=== PATIENT | male | born 1945 | race Caucasian/White ===

== ENCOUNTER 2016-07-19 11:21 | Observation (INO) | payer MEDICARE, OTHER ==
[~2016-07-19] VITALS: Ht 175.3 cm; Wt 93.6 kg
[2016-07-19 11:54] LABS: BASOPHILS 0.5 % (0.0-2.0); EOSINOPHILS 2.1 % (0-7); HEMATOCRIT 47.3 % (42.0-54.0); HEMOGLOBIN 16.3 g/dL (13.5-17.5); IMMATURE GRANULOCYTES 0.2 % (0-5); LYMPHOCYTES 32.7 % (15-50); MCHC 34.5 g/dL (31.0-37.0); MCV 98.5 fL (80.0-100.0); MONOCYTES 11.7 % (2-11); NEUTROPHILS 52.8 % (40-80); PLATELET COUNT 177 10x3/uL (130-400); RDW 15.7 % (11.5-14.5); WBC 6.2 10x3/uL (4.8-10.8)
[2016-07-19 12:11] LABS: ALBUMIN 3.9 g/dL (3.4-5.0); BILIRUBIN - TOTAL 0.55 mg/dL (0.2-1.3); CALCIUM 9.3 mg/dL (8.5-10.1); CARBON DIOXIDE 25.4 mmol/L (21.0-32.0); CREATININE - SERUM 1.1 mg/dL (0.6-1.3); POTASSIUM - SERUM 4.4 mmol/L (3.5-5.1)
[2016-07-19 12:28] LABS: TROPONIN-I 0.111 ng/mL (0.000-0.060)
[2016-07-19 15:27] VITALS: BP 126/72
--- NOTE | 2016-07-19 15:35 | NUR ---
PT ARRIVED TO ROOM. RR NONLABORED ON RA. VSS. PT HAS CARDIZEM DRIP INFUSING @10ML/HR VIA R.FA PIV WITH DRSG CDI AND SWAB CAPS IN USE. ADMISSION ASSESSMENT COMPLETED AND ORDERS BEING REC'D. PT RESTING COMFORTABLY AND DENIES PAIN OR CURRENT NEEDS. ORIENTED PT TO FLOOR AND ROOM. FAMILY AT BEDSIDE, TELEMETRY APPLIED. NO FURTHER NEEDS, WILL CPOC.
[2016-07-19] MEDS ORDERED: BENAZEPRIL HCL10 MG PO (15:36)
[2016-07-19] MEDS ORDERED: PROSCAR5 MG PO (15:37)
[2016-07-19] MEDS ORDERED: NORVASC10 MG PO (15:37)
[2016-07-19] MEDS ORDERED: VITAMIN D31000 UNIT PO (15:37)
[2016-07-19] MEDS ORDERED: HYDROCODONE-APA1 TAB PO (15:39)
[2016-07-19] MEDS ORDERED: ALEVE220 MG PO (15:39)
[2016-07-19] MEDS ORDERED: LIPITOR20 MG PO (15:40)
[2016-07-19] MEDS ORDERED: KLONOPIN1 MG PO (15:40)
[2016-07-19] MEDS ORDERED: ZANTAC150 MG PO (15:41)
[2016-07-19] MEDS ORDERED: CYCLOBENZAPRINE5 MG PO (15:42)
[2016-07-19] MEDS ORDERED: COUMADIN7.5 MG PO (15:42)
[2016-07-19] MEDS ORDERED: COUMADIN4 MG PO (15:46)
[2016-07-19 15:48] VITALS: BP 129/72; Ht 175.3 cm; Wt 93.6 kg
--- NOTE | 2016-07-19 17:35 | NUR ---
PT RESTING QUIETLY IN BED WATCHING TV. RR NONLABORED ON RA. PT DENIES ANY PAIN OR CURRENT NEEDS. CL IN REACH. WILL CPOC.
[2016-07-19 19:00] VITALS: BP 111/63
[2016-07-20] VITALS: BP 114/69
[2016-07-20 04:00] VITALS: BP 113/69
[2016-07-20 08:00] VITALS: BP 120/79
--- NOTE | 2016-07-20 09:50 | NUR ---
Pt in low fowlers position, Saline lock DCd from right AC with cath tip intact. laboratory monitor removed at this time, patient rates pain as 4-5/10 but denies need for intervention. Patient denies further needs at this time. Debra RN in room.
--- NOTE | 2016-07-20 11:19 | NUR ---
ECHO COMPLETED AT BS.
[2016-07-20 11:50] VITALS: BP 123/72
[2016-07-20] MEDS ORDERED: CARDIZEM CD240 MG PO (11:55)
--- NOTE | 2016-07-20 12:45 | NUR ---
IV AND TELEMETRY DCD. DC PLANS GIVEN. UNDERSTANDING VOICED. ESCORTED TO CAR BY W/C.
--- NOTE | 2016-07-22 11:12 | EC ---
PATIENT:CHRISSY MAHMOOD DATE OF SERVICE: 07/19/16 SEX: M MEDICAL RECORD: [id number] DATE OF : [birth year] LOCATION:D.M2 D.211 AGE OF PATIENT: 71 ADMISSION DATE: 07/19/16 REFERRING PHYSICIAN: INTERPRETING PHYSICIAN: MANNY LANGSTON MD ECHOCARDIOGRAM REPORT ECHO CHARGES 4 ECHO COMPLETE CLINICAL DIAGNOSIS: A-FIB ECHOCARDIOGRAPHIC MEASUREMENTS (adult normal given) AC root (d.<3.7cm) 3.7 LV Septum d (<1.2 cm> 2.0 Valve Excursion 2.2 LV Septum (systole) 2.6 Left Atria (s.<4.0cm> 4.0 LVPW d(<1.2cm) 1.3 RV (d.<2.3cm) 2.7 LVPW (sytole) 2.2 LV diastole(<5.6CM) 5.6 MV E-F(>70mm/sec) LV systole 2.9 LVOT Diameter 1.7 MV exc.(>10mm) Est.ejection fraction (50-75%) Pericardial Effusion N DOPPLER: LVIT A 98.0 E 109 LA RVSP 29.0 LVOT 158 AOP1/2T Asc. Ao 269 RVOT 103 RA PA 134 AV Gradient Peak 29.0 AV Mean 14.3 AV Area 1.4 MV Gradient Peak 5.0 MV Mean 1.9 MV Area COMMENTS: Straw Hat Brim Cutter Operator: Zackery ROBERTS Manager Financial Systems:Niels Naik TAPE# PACS DATE OF SERVICE: 07/20/2016 Echocardiogram FINDINGS: 1. Left ventricular chamber size is within normal limits. Left ventricular systolic function is normal. Overall ejection fraction estimated at 60%. 2. Left atrium, right atrium, and right ventricular chamber sizes are upper limits of normal to mildly dilated. Left atrium measures 4.0 cm. 3. Valvular structures: Aortic valve demonstrates mild aortic stenosis. Valve ECHOCARDIOGRAM REPORT [id number] CHRISSY MAHMOOD area calculates to 1.4 cm-squared and there is a gradient of 29 mm across the valve. The remaining valvular structures have normal structure and motion. 4. Doppler interrogation elsewise reveals no significant valvular insufficiency or stenosis and pulmonary systolic pressure is normal estimated at 29 mmHg. 5. No evidence of pericardial effusion or left ventricular thrombus. TRANSINT:[id number] Voice Confirmation ID: [id number] DOCUMENT ID: [id number] MANNY LANGSTON MD at 1112 CC: [id number] DICTATION DATE: 07/21/16 1224 ADVERTISING ASSOCIATE: 07/21/162042 DIS IN 07/20/16 [facility] [address] [place] [address]
--- NOTE | 2016-07-22 13:36 | HP ---
PATIENT: CHRISSY MAHMOOD MEDICAL RECORD: [id number] ACCOUNT: [id number] LOCATION:[address] : [birth year] ADMISSION DATE: 07/19/16 HISTORY AND PHYSICAL EXAMINATION HISTORY OF PRESENT ILLNESS: A 71-year-old male with a history of atrial fibrillation status post ablation back in 2014, was actually at Dr. Wray's office for injections, found to be in atrial fibrillation with RVR, in entirely symptomatic. He did have ablation as described above. He has a history of dyslipidemia. We are asked to see his concerning his cardiovascular status. PAST MEDICAL HISTORY: Includes: 1. History of hypertension. 2. tube buffer use of ____ medications. 3. Dyslipidemia. 4. Atrial fibrillation. 5. Osteoarthritis. 6. Gastroesophageal reflux disease. ALLERGIES: INCLUDE SULFA, PENICILLIN, TETRACYCLINE, ERYTHROMYCIN AND CIPRO. MEDICATIONS: Proscar 5 mg p.o. q. day, Zantac 150 b.i.d., Naprosyn 220 b.i.d., [place] 10/325 one b.i.d., benazepril 10 q. day, ____ 20 q. day, amlodipine 10 q. day, Coumadin per scale, Flexeril 5 q.h.s. SOCIAL HISTORY: , lives here in [place], a nonsmoker and nondrinker. He takes care of all ADLs. REVIEW OF SYSTEMS: The patient reports easy bruising but reports no swollen glands. The patient reports no fever, no night sweats, no significant weight gain, no significant weight loss. No significant exercise tolerance. The patient reports no dry eyes, no irritation, no vision change. Patient reports no difficulty hearing and no ear pain. The patient reports no frequent nose bleeds or nose and sinus problems. The patient reports on arm pain on exertion. No shortness of breath while lying down. No history of heart murmur. Patient reports no cough, no wheezing or coughing up blood. Patient reports no abdominal pain, no vomiting. Normal appetite. No diarrhea and not vomiting blood. No nausea and no constipation. Patient reports no incontinence. No difficulty urinating. No hematuria. No increased frequency. Patient reports no muscle aches. No weakness, no arthralgias, no back pain. No swelling of the extremities. Patient reports no abnormal mole, no jaundice, no rashes. Reports no loss of consciousness. No weakness and no numbness. No seizures, dizziness, or headaches. The patient reports no depression, no sleep disturbance, feeling safe in a relationship and no alcohol abuse. Patient reports on fatigue. Reports no runny nose or sinus pressure. No itching, no hives, and no frequent sneezing. PHYSICAL EXAMINATION: GENERAL: Pleasant gentleman, who appears stated age, in no acute distress. VITAL SIGNS: Pulse rate currently 72, blood pressure 129/72. HEENT: Normocephalic, atraumatic. NECK: No JVD. HEART: Regular. LUNGS: Clear. ABDOMEN: Soft, nontender. HISTORY AND PHYSICAL [id number] TIMOTEOCHRISSY Serge EXTREMITIES: Pulse 2+ and equal. No edema. DIAGNOSTIC DATA: ECG shows atrial fibrillation with RVR. IMPRESSION: Atrial fibrillation with rapid ventricular response, has a mildly elevated initial cardiac enzymes. We will follow this serially. Suspect demand ischemia, respond nicely to IV Cardizem. We will attempt to switch his amlodipine to Cardizem p.o. Further recommendations based on above findings. TRANSINT:[id number] Voice Confirmation ID: [id number] DOCUMENT ID: [id number] RICHARDSON ARTEAGA MD at 1336 CC: [id number] DICTATION DATE: 07/19/16 164 PLASTIC PARTS DESIGNER: 07/19/16 1846 DIS IN 07/20/[address] [facility] [address] [place] [address]
--- NOTE | 2016-07-22 13:36 | DS ---
PATIENT:CHRISSY MAHMOOD :49 MEDICAL RECORD: [id number] DISCHARGE SUMMARY ADMISSION DATE: 07/19/16 DISCHARGE DATE: 07/20/16 DATE OF ADMISSION: 07/19/2016 DATE OF DISCHARGE: 07/20/2016 IMPRESSION: 1. Atrial fibrillation. 2. History of hypertension. BRIEF HISTORY AND HOSPITAL COURSE: A 71-year-old male admitted with AFib, RVR, has a history of AFib, status post-ablation. He received IV Cardizem and responded nicely with protestant to normal sinus rhythm, already on Coumadin for CVA prophylaxis. We will switch his amlodipine to Cardizem 240 daily[address] He will see Dr[address] Castellano at his convenience for followup. TRANSINT:[id number] Voice Confirmation ID: [id number] DOCUMENT ID: [id number] RICHARDSON ARTEAGA MD at 1336 CC: [id number] DICTATION DATE: 07/20/16 0832 RUBBER FLAP TUBER MACHINE OPERATOR: 07/20/16 1945 DIS IN 07/20/16 [place] [place] [address] [place] [address]
== END 2016-07-20 12:46 | disposition home or self-care (01) ==
LOC: D.ER 11:21 → D.M2 14:38 → OBSVTIME 14:38 → D.M2 15:04 → D.SDCHOLD 15:04 → D.M2 07-20 12:46
PROVIDERS: Emergency Medicine; ADMIT Internal Medicine Interventional Cardiology
DX: I48.91 Unspecified atrial fibrillation (principal); I10 Essential (primary) hypertension; E78.5 Hyperlipidemia, unspecified; M19.90 Unspecified osteoarthritis, unspecified site; K21.9 Gastro-esophageal reflux disease without esophagitis

== ENCOUNTER → 2018-05-30 16:44 | Outpatient (CLI) | payer MEDICARE, OTHER ==
[2016-07-19 15:48] VITALS: BMI 30.5
[~2018-05-30 16:44] MED LIST: ALEVE220 MG PO; BENAZEPRIL HCL10 MG PO; CARDIZEM CD240 MG PO; COUMADIN4 MG PO; COUMADIN7.5 MG PO; CYCLOBENZAPRINE5 MG PO; HYDROCODONE-APA1 TAB PO; KLONOPIN1 MG PO; LIPITOR20 MG PO; NORVASC10 MG PO; PROSCAR5 MG PO; VITAMIN D31000 UNIT PO; ZANTAC150 MG PO
== END | disposition home or self-care (01) ==
LOC: D.LABREF 16:44
DX: J32.9 Chronic sinusitis, unspecified (principal)

== ENCOUNTER 2018-10-22 08:44 | Day surgery (SDC) | payer MEDICARE, OTHER ==
[~2018-10-22] VITALS: Ht 175.3 cm; Wt 90.7 kg
--- NOTE | ~2018-10-22 | HP ---
PATIENT: CHRISSY SELLERS MEDICAL RECORD: [id number] ACCOUNT: [id number] LOCATION:[place] : [birth year] ADMISSION DATE: 10/22/18 PCP: FRANKY HULL MD HISTORY AND PHYSICAL EXAMINATION HISTORY: Mr. Sellers is 73 years old. He has had severe left-sided sinusitis secondary to a dental abscess. The tooth was taken out and the fistula was closed, but he has continued to have sinusitis, refractory to medical management. He is being admitted for left-sided sinus surgery. PAST MEDICAL HISTORY: Includes hypertension and reflux. PAST SURGICAL HISTORY: Includes carpal tunnel surgery, back surgery, rotator cuff surgery, neck surgery, and arthroscopic knee surgery. CURRENT MEDICATIONS: Include diltiazem, benazepril, finasteride, hydrocodone, Zantac, atorvastatin, clonazepam, Coumadin, cyclobenzaprine, Combivent, testosterone, and gabapentin. ALLERGIES: PENICILLIN, TETRACYCLINE, CIPRO, SEPTRA, AND THYROID MEDICATION. PHYSICAL EXAMINATION: GENERAL: He is healthy appearing. FACE: Normal and symmetric. EYES: Sclerae and conjunctivae are normal. EARS: TMs are intact. No middle ear effusion. NOSE: Normal anterior rhinoscopy. ORAL CAVITY AND OROPHARYNX: Tongue protrudes in midline. Base of tongue is normal. Palate is normal. On nasal endoscopy, right side looks good. On left side, he has edema and swelling. Left middle meatus is closed. There is some purulent drainage and granulation changes in the middle meatus on the middle turbinate. NECK: No masses. No adenopathy. CHEST: Clear. CARDIOVASCULAR: Regular rate and rhythm. No murmur. IMPRESSION: Left-sided ethmoid, maxillary, and frontal sinusitis secondary to initially a dental abscess. PLAN: Left maxillary antrostomy, left ethmoidectomy, and left frontal sinusotomy. TRANSINT:[id number] Voice Confirmation ID: [id number] DOCUMENT ID: [id number] FRANKY HULL MD CC: [id number] DICTATION DATE: 10/18/18 1510 JEWISH THOUGHT PROFESSOR: 10/18/18 1532 [facility] [address] [place] [address]
--- NOTE | ~2018-10-22 | OP ---
PATIENT NAME: CHRISSY MAHMOOD MEDICAL RECORD: [id number] :49 LOCATION:[facility] ADMISSION DATE: SURGEON: BRIAN SLOAN MD DATE OF OPERATION: 10/22/2018 PREOPERATIVE DIAGNOSIS: Left-sided chronic sinusitis. POSTOPERATIVE DIAGNOSIS: Left-sided chronic sinusitis. PROCEDURES: Left-sided ethmoidectomy, left frontal sinusotomy, left middle meatal antrostomy. SURGEON: Brian Sloan MD ANESTHESIA: General orotracheal. BLOOD LOSS: Less than 5 cc. SPECIMENS: Cultures from the left frontal sinus and left maxillary sinus. COMPLICATIONS: None. NASAL PACKING: None. DISPOSITION: Recovery stable. FINDINGS: There was purulence draining from the frontal sinus, purulence draining from the ethmoids and from the left maxillary sinus. The sphenoid sinus on the left side was clear with nice patent ostia. No sign of infection. The right side of the nose was normal. DESCRIPTION OF PROCEDURE: He was brought to the operating room and placed in supine position, sedated and intubated by anesthesia. The head was turned 90 degrees. A head drape was applied. Using a headlight and nasal speculum, the nose was examined. The right side first was unremarkable. On the left side, the inferior turbinate, tip of the middle turbinate, and lateral nasal wall, floor of the nose were injected with a total of less than 1 cc of 1% lidocaine with 1:100,000 epinephrine and 2 Afrin pledgets were placed in both sides of the nose. He was positioned, prepped and draped in usual fashion. Then, all the Afrin pledgets were removed both from each side. The 0-degree scope was used to examine the right side of the nose. The inferior middle turbinate, middle meatus was normal. Nasal vault and nasopharynx were all normal as was all the mucosa. The left side was examined, the inferior meatus was normal. Inferior turbinate was normal. The middle meatus purulence bulging maxillary wall present in the middle turbinate against the septum. Purulence was drained in and out of the anterior, superior, middle meatus, nasal frontal sinus as well. I was able to, with the scope and suction, get past the middle turbinate all the way back to the back of the nose, the nasopharynx was normal. I could see the sphenoid ostia, which was opened clean and the sinus was obviously aerated. Then, backing up the middle turbinate medialized again. Using the microdebrider, some of this tissue, base of the uncinate that had been pressed medially was taken down. Then, copious purulence was draining from the maxillary sinus. Cultures were taken of that. The anterior ethmoids were taken down. This exposed the frontal sinus duct. Copious purulence was pouring from there as well. Cultures were obtained. A curved large olive tip suction was OPERATIVE REPORT [id number] CHRISSY MAHMOOD placed to the left maxillary sinus. A Luki trap was used to suction out some of that material and then with better visualization, the posterior ethmoids were taken down as well carefully with the microdebrider. This created a nice open middle meatus. A thin curved olive tip suction was inserted into the frontal sinus duct all the way up into the frontal sinus. This was irrigated repeatedly with saline and obvious purulence could be seen coming back and then was suctioned over and over with a 20 cc syringe. Then, the same with the left maxillary sinus, repeatedly irrigating with a 20 cc syringe until it was completely clean. There were granular changes around the maxillary ostia, but that was all cleaned up to a nice opening there. The nasopharynx was suctioned. Some Afrin pledgets were placed in there again for a few minutes and removed. There was really no significant oozing at all. He was awakened, extubated, and transported to recovery in good condition. No complications. TRANSINT:[id number] Voice Confirmation ID: [id number] DOCUMENT ID: [id number] BRIAN SLOAN MD CC: [id number] DICTATION DATE: 10/22/18 1229 CHIEF DATA OFFICER: 10/22/18 1323 [facility] [address] [place] [address]
[~2018-10-22 08:44] MED LIST changes: +METFORMIN HCL500 M1 PO; +NEURONTIN600 MG PO
[2018-10-22 09:22] LABS: HEMATOCRIT 38.2 % (42.0-54.0); HEMOGLOBIN 12.5 g/dL (13.5-17.5); MCHC 32.7 g/dL (31.0-37.0); MCV 100.8 fL (80.0-100.0); MEAN PLATELET VOLUME 9.8 fL (7.4-10.4); RBC 3.79 10x6/uL (4.20-6.10); RDW 14.1 % (11.5-14.5); WBC 5.2 10x3/uL (4.8-10.8)
[2018-10-22 09:40] LABS: CALC OSMOLALITY 283 mosm/kg (275-300); CALCIUM 9.5 mg/dL (8.5-10.1); CARBON DIOXIDE 28.4 mmol/L (21.0-32.0); CHLORIDE - SERUM 106 mmol/L (98-107); GLUCOSE 125 mg/dL (74-106); POTASSIUM - SERUM 4.1 mmol/L (3.5-5.1); SODIUM 141 mmol/L (136-145); UREA NITROGEN 17 mg/dL (7-18); eGFR NON AFRICAN AMERICAN 78 mL/min (90-120)
[2018-10-22 09:44] LABS: APTT 29.7 SECONDS (22.8-39.4); INR 1.04 (0.85-1.17); PROTIME 13.1 SECONDS (11.6-15.0)
[2018-10-22 10:20] VITALS: BP 130/73; Ht 175.3 cm; Wt 90.7 kg
--- NOTE | 2018-10-22 13:58 | NUR ---
IV ERMOVED AND PT VOIDED
[2018-10-28 15:06] LABS: AEROBE ID Final report (())
== END 2018-10-22 14:10 | disposition home or self-care (01) ==
LOC: D.OPS 08:44 → D.PAN 10:55 → D.OPS 10:55
PROVIDERS: Anesthesiology; ATTEND Otolaryngology
DX: J32.1 Chronic frontal sinusitis (principal); J32.2 Chronic ethmoidal sinusitis; J32.0 Chronic maxillary sinusitis; Z01.812 Encounter for preprocedural laboratory examination

== ENCOUNTER → 2020-01-29 21:48 | Outpatient (CLI) | payer MEDICARE, OTHER ==
[2018-10-22 10:20] VITALS: BMI 29.6
== END | disposition home or self-care (01) ==
LOC: D.LABREF 21:48
PROVIDERS: ATTEND Orthopaedic Surgery
DX: M19.011 Primary osteoarthritis, right shoulder (principal)

== ENCOUNTER 2020-01-31 12:43 | Inpatient (IN) | payer MEDICARE, OTHER ==
[~2020-01-31] VITALS: Ht 175.3 cm; Wt 90.9 kg
[~2020-01-31 12:43] MED LIST changes: -COUMADIN4 MG PO; -COUMADIN7.5 MG PO; +HYDROCODON-ACE1 EA10 PO; -HYDROCODONE-APA1 TAB PO; +VITAMIN D2000 UNI1 PO; -VITAMIN D31000 UNIT PO; +WARFARIN SODIU7.5 MG PO
[2020-03-06] MEDS ORDERED: PEPCID AC20 MG PO (12:04)
[2020-03-06] MEDS ORDERED: ALEVE220 MG PO (12:05)
[2020-03-06] MEDS ORDERED: COMBIVENT RESPIM4 GM INH (12:06)
[2020-03-06] MEDS ORDERED: RELPAX40 MG PO (12:06)
[2020-03-06] MEDS ORDERED: VITAMIN B12 IM (12:07)
[2020-03-06] MEDS ORDERED: PIOGLITAZONE15 MG PO (12:09)
[2020-03-06 13:32] LABS: BASOPHILS 0.3 % (0-2); HEMATOCRIT 42.5 % (42.0-54.0); HEMOGLOBIN 14.6 g/dL (13.5-17.5); LYMPHOCYTES 30.9 % (15-50); MCH 35.4 pg (26.0-34.0); MCHC 34.4 g/dL (31.0-37.0); MCV 103.2 fL (80.0-100.0); MONOCYTES 10.5 % (2-11); NEUTROPHILS 54.3 % (40-80); PLATELET COUNT 162 10x3/uL (130-400); RBC 4.12 10x6/uL (4.20-6.10); RDW 14.3 % (11.5-14.5)
[2020-03-06 13:41] LABS: ANION GAP 11.1 mmol/L (8-16); CALCIUM 9.4 mg/dL (8.5-10.1); CARBON DIOXIDE 28.1 mmol/L (21.0-32.0); CREATININE - SERUM 1.2 mg/dL (0.6-1.3); POTASSIUM - SERUM 4.2 mmol/L (3.5-5.1)
[2020-03-06 13:55] LABS: APTT 31.1 SECONDS (22.8-39.4); INR 1.31 (0.85-1.17); PROTIME 16.1 SECONDS (11.6-15.0)
[2020-03-06 13:57] LABS: BILIRUBIN NEGATIVE (NEGATIVE); KETONE NEGATIVE (NEGATIVE); NITRITE NEGATIVE (NEGATIVE)
[2020-03-09] VITALS (11 sets, daily range): BP systolic 92–137; BP diastolic 57–77; Ht 175.3 cm; Wt 90.9 kg
--- NOTE | 2020-03-09 07:17 | NUR ---
CAUTERY PAD PLACED ON LEFT THIGH. PLASMA BLADE USED ON SETTING 6/8. CAUTERY PAD LOT#[id number] EXP. 06/04/2021
--- NOTE | 2020-03-09 11:37 | NUR ---
RECEIVED TO ROOM 1209 VIA BED FROM PACU. A/O X3. BP IS LOW AT THIS TIME. WILL CONTINUE BOLUS AND MONITOR. DRESSING TO RIGHT SHOULDER DRY AND INTACT. DENIES NEEDS. REPORTS NO PAIN AT THIS TIME.
--- NOTE | 2020-03-09 12:24 | NUR ---
BP CONTINUES ON THE LOW SIDE BUT UP SLIGHTLY. LUNCH SERVED IN ROOM. AT BEDSIDE. DENIES NEEDS.
--- NOTE | 2020-03-09 16:15 | NUR ---
V OIDED 100 CC CLEAR YELLOW URINE WITHOUT DIFFICULTY. DENIES NEEDS. BP STEADY.
--- NOTE | 2020-03-09 18:29 | NUR ---
ATE OVER HALF OF SUPPER. DENIES NEEDS. VOIDED 100cc CLEAR YELLOW URINE. NO CHANGES NOTED.
--- NOTE | 2020-03-09 19:10 | NUR ---
PATIENT RESTING IN BED WITH NO S/S OF DISTRESS. EMPTIED 200ML FROM URINAL. PATIENT DENIES OTHER NEEDS AT THIS TIME. BED IN LOWEST POSITION AND CALL LIGHT WITHIN REACH. ENCOURAGED THE PATIENT TO CALL IF HE HAS NEEDS. WILL CONTINUE TO MONITOR.
--- NOTE | 2020-03-09 19:35 | NUR ---
ADMINISTERED MEDS PER ORDERS. PATIENT DENIES OTHER NEEDS. WILL CONTINUE TO MONITOR.
[2020-03-10 00:06] VITALS: BP 146/76
[2020-03-10 04:09] VITALS: BP 121/67
[2020-03-10 05:23] LABS: HEMATOCRIT 35.8 % (42.0-54.0); HEMOGLOBIN 11.5 g/dL (13.5-17.5); MCH 33.6 pg (26.0-34.0); MCHC 32.1 g/dL (31.0-37.0); MCV 104.7 fL (80.0-100.0); MEAN PLATELET VOLUME 10.8 fL (7.4-10.4); RBC 3.42 10x6/uL (4.20-6.10); RDW 14.3 % (11.5-14.5); WBC 6.6 10x3/uL (4.8-10.8)
[2020-03-10] MEDS ORDERED: PERCOCET 10-321 EAC1 PO (07:07)
--- NOTE | 2020-03-10 07:38 | NUR ---
ALERT AND ORIENTED. LUNGS CLEAR BILATERALLY. HEART SOUNDS S1 AND S2 HEARD IN ALL HOOD. BOWEL SOUNDS ACTIVE X 4. IV TO LEFT HAND PATENT WITHOUT REDNESS. DENIES NEEDS. BED LOW. CALL NEELY AND PERSONAL ITEMS IN REACH. WILL CONTINUE TO MONITOR.
[2020-03-10 07:41] VITALS: BP 128/71
--- NOTE | 2020-03-10 10:20 | MORECARE ---
CASE MANAGEMENT DISCHARGE SUMMARY PATIENT: CHRISSY MAHMOOD UNIT: [id number] ADM DATE: 03/09/20 AGE: 74 : 47 SEX: M ROOM/BED: D.1209 AUTHOR: СЕРГЕЙ LEONARDO PHYSICIAN: REFERRING PHYSICIAN: ALBERTO BOWEN MD DATE OF SERVICE: 03/10/20 Discharge Plan Patient Name: CHRISSY MAHMOOD [facility] [facility] 1945 Planned Disposition: Home Anticipated Discharge Date: 03/10/20 Discharge Date: Expected LOS: 1 Initial Reviewer: [email or web address] Initial Review Date: 03/09/2020 Generated: 03/10/20 11:19 am External Providers External Provider: OTHER-OTHER Next Contact Date: Service Request Date: Service Type: Resolution: Reviewer: Comments: Patient Name: CHRISSY MAHMOOD Page [phone] at 1020 All edits/amendments must be made on the electronic document DICTATION DATE: 03/10/20 1020 SIEBEL DEVELOPER: SUNG 03/10/20 1020 RPT#: [id number] DC DATE: STATUS: ADM IN [facility] [address] [place] [address] END OF REPORT
--- NOTE | 2020-03-10 10:36 | MORECARE ---
CASE MANAGEMENT DISCHARGE SUMMARY PATIENT: CHRISSY SELLERS UNIT: [id number] ADM DATE: 03/09/20 AGE: 74 : 47 SEX: M ROOM/BED: D.1209 AUTHOR: СЕРГЕЙ LEONARDO PHYSICIAN: REFERRING PHYSICIAN: ALBERTO BOWEN MD DATE OF SERVICE: 03/10/20 Discharge Plan Patient Name: CHRISSY SELLERS Facility: [facility]:[place] : 1945 Planned Disposition: Home Anticipated Discharge Date: 03/10/20 Discharge Date: Expected LOS: 1 Initial Reviewer: [email or web address] Initial Review Date: 03/09/2020 Generated: 03/10/20 11:36 am DCP- Discharge Planning Updated by [email or web address]: Shobha Delgado on 03/10/20 9:[address] CM contacted [facility] ([phone], Fx: [phone]), provided required information and await delivery to patient's room. CM met with patient to discuss initial discharge planning. Patient is in agreement to proceed. Patient reports that he lives at home independently with his , Mary Sellers ([phone]). Patient is alert/oriented. [facility] Patient states he has been able to obtain all of his prescribed medications. HHS: Declines. DME: Walker, straight cane, shower bench. Patient gives permission to speak with family members. 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 CM discussed the availability of HH, Rehab, SNF, OP Therapy, DME services. Patient is in agreement to order of a BSC, Quad cane. Patient denies the need for additional services at this time and feels safe returning to previous environment. Patient denies hospitalization within the past 30 days. Patient denies the use of community resources AIRPLANE RIGGER. Transportation at time of discharge: Mary (). CM will follow and assist PRN with DC needs. Last DP export: 03/10/20 9:20 a Patient Name: CHRISSY SELLERS Page [phone] at 1036 All edits/amendments must be made on the electronic document DICTATION DATE: 03/10/20 103 MARKETING OPERATIONS SPECIALIST: SUNG 03/10/20 1036 RPT#: [id number] DC DATE: STATUS: ADM IN [facility] [address] [place] [address] END OF REPORT
--- NOTE | 2020-03-10 10:46 | NUR ---
DISCHARGE EDUCATION PROVIDED BOTH WRITTEN AND VERBAL. VERBALIZED UNDERSTANDING. DENIES FURTHER QUESTIONS. IV REMOVED FROM LEFT HAND WITH TIP INTACT. DRSG CHANGED TO RIGHT SHOULDER WITH MEPILEX AG PER ORDER. EXTRA DRSG GIVEN FOR PATIENT TO CHANGE IN SEVEN DAYS AND EDUCATION PROVIDED. NO SIGNS INFECTION OR REDNESS NOTED. PATIENT WAITING RIDE.
--- NOTE | 2020-03-10 11:05 | MORECARE ---
CASE MANAGEMENT DISCHARGE SUMMARY PATIENT: CHRISSY SELLERS UNIT: [id number] ADM DATE: 03/09/20 AGE: 74 : 47 SEX: M ROOM/BED: D.1209 AUTHOR: СЕРГЕЙ LEONARDO PHYSICIAN: REFERRING PHYSICIAN: ALBERTO BOWEN MD DATE OF SERVICE: 03/10/20 Discharge Plan Patient Name: CHRISSY SELLERS Facility: [facility]:[employer] : 1945 Planned Disposition: Home Anticipated Discharge Date: 03/10/20 Discharge Date: Expected LOS: 1 Initial Reviewer: [email or web address] Initial Review Date: 03/09/2020 Generated: 03/10/20 12:05 pm DCP- Discharge Planning Updated by [email or web address]: Shobha Delgado on 03/10/20 9:[address] CM contacted [facility] ([phone], Fx: [phone]), provided required information and await delivery to patient's room. CM met with patient to discuss initial discharge planning. Patient is in agreement to proceed. Patient reports that he lives at home independently with his , Mary Sellers ([phone]). Patient is alert/oriented. [facility] Patient states he has been able to obtain all of his prescribed medications. HHS: Declines. DME: Walker, straight cane, shower bench. Patient gives permission to speak with family members. 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 CM discussed the availability of HH, Rehab, SNF, OP Therapy, DME services. Patient is in agreement to order of a BSC, Quad cane. Patient denies the need for additional services at this time and feels safe returning to previous environment. Patient denies hospitalization within the past 30 days. Patient denies the use of community resources CHEMICAL LABORATORY SCIENTIST. Transportation at time of discharge: Mary (). CM will follow and assist PRN with DC needs. Last DP export: 03/10/20 9:36 a Patient Name: CHRISSY SELLERS Page [phone] at 1105 All edits/amendments must be made on the electronic document DICTATION DATE: 03/10/201104 INFORMATION SECURITY SYSTEMS INSTRUCTOR: SUNG 03/10/201104 RPT#: [id number] DC DATE: STATUS: ADM IN [facility] [address] [place] [address] END OF REPORT
--- NOTE | 2020-03-10 11:26 | NUR ---
ASSISTED TO AND FROM BATHROOM WITH STANDBY ASSIST.
--- NOTE | 2020-03-10 12:03 | MORECARE ---
CASE MANAGEMENT DISCHARGE SUMMARY PATIENT: CHRISSY SELLERS UNIT: [id number] ADM DATE: 03/09/20 AGE: 74 : 47 SEX: M ROOM/BED: D.1209 AUTHOR: JORDEN,DOC PHYSICIAN: REFERRING PHYSICIAN: ALBERTO BOWEN MD DATE OF SERVICE: 03/10/20 Discharge Plan Patient Name: CHRISSY SELLERS Facility: [facility]:[place] : 1945 Planned Disposition: Home Anticipated Discharge Date: 03/10/20 Discharge Date: Expected LOS: 1 Initial Reviewer: [email or web address] Initial Review Date: 03/09/2020 Generated: 03/10/20 1:03 pm DCP- Discharge Planning Updated by [email or web address]: Shobha Delgado on 03/10/20 9:[address] CM contacted [facility] ([phone], Fx: [phone]), provided required information and await delivery to patient's room. CM met with patient to discuss initial discharge planning. Patient is in agreement to proceed. Patient reports that he lives at home independently with his , Mary Sellers ([phone]). Patient is alert/oriented. [facility] Patient states he has been able to obtain all of his prescribed medications. HHS: Declines. DME: Walker, straight cane, shower bench. Patient gives permission to speak with family members. 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 CM discussed the availability of HH, Rehab, SNF, OP Therapy, DME services. Patient is in agreement to order of a BSC, Quad cane. Patient denies the need for additional services at this time and feels safe returning to previous environment. Patient denies hospitalization within the past 30 days. Patient denies the use of community resources FARM LABORER. Transportation at time of discharge: Mary (). CM will follow and assist PRN with DC needs. DCPIA - Discharge Planning Initial Assessment Updated by [email or web address]: Shobha Delgado on 03/10/20 11:57 am * Is the patient Alert and Oriented? Yes * How many steps to enter\exit or inside your home? Mult * PCP Brian Khan APRN [facility], [place] * Pharmacy [facility], [place] * Preadmission Environment Home with Family * ADLs Independent * Equipment Cane Rolling Walker Tub Bench * Other Equipment NA * List name and contact numbers for known caregivers / representatives who currently or will assist patient after discharge: Mary Sellers () [phone] * Verbal permission to speak to the caregivers and representatives has been obtained from the patient. Yes * Community resources currently utilized None * Please name any agencies selected above. [facility] [phone] * Additional services required to return to the preadmission environment? No * Can the patient safely return to the preadmission environment? Yes * Has this patient been hospitalized within the prior 30 days at any hospital? No Last DP export: 03/10/20 10:05 a Patient Name: CHRISSY SELLERS Page [phone] at 1203 All edits/amendments must be made on the electronic document DICTATION DATE: 03/10/20 1203 GUN STOCK CHECKER: SUNG 03/10/20 1203 RPT#: [id number] DC DATE: STATUS: ADM IN [facility] [address] [place] [address] END OF REPORT
--- NOTE | 2020-03-10 13:32 | NUR ---
PATIENT DC HOME WITH WITH ALL BELONGINGS, INCLUDINE QUAD CANE AND BEDSIDE COMMODE.
--- NOTE | 2020-03-10 13:56 | MORECARE ---
CASE MANAGEMENT DISCHARGE SUMMARY PATIENT: CHRISSY SELLERS UNIT: [id number] ADM DATE: 03/09/20 AGE: 74 : 49 SEX: M ROOM/BED: D.1209 AUTHOR: СЕРГЕЙ LEONARDO PHYSICIAN: REFERRING PHYSICIAN: ALBERTO BOWEN MD DATE OF SERVICE: 03/10/20 Discharge Plan Patient Name: CHRISSY SELLERS Facility: [facility]:[place] : 1945 Planned Disposition: Home Anticipated Discharge Date: 03/10/20 Discharge Date: 03/10/2020 Expected LOS: 1 Initial Reviewer: [email or web address] Initial Review Date: 03/09/2020 Generated: 03/10/20 2:55 pm DCP- Discharge Planning Updated by [email or web address]: Shobha Delgado on 03/10/20 9:[address] CM contacted [facility], [place] ([phone], Fx: [phone]), provided required information and await delivery to patient's room. CM met with patient to discuss initial discharge planning. Patient is in agreement to proceed. Patient reports that he lives at home independently with his , Mary Sellers ([phone]). Patient is alert/oriented. [facility]. Patient states he has been able to obtain all of his prescribed medications. HHS: Declines. DME: Walker, straight cane, shower bench. Patient gives permission to speak with family members. 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 CM discussed the availability of HH, Rehab, SNF, OP Therapy, DME services. Patient is in agreement to order of a BSC, Quad cane. Patient denies the need for additional services at this time and feels safe returning to previous environment. Patient denies hospitalization within the past 30 days. Patient denies the use of community resources SCRAP PREPARER. Transportation at time of discharge: Mary (). CM will follow and assist PRN with DC needs. DCPIA - Discharge Planning Initial Assessment Updated by [email or web address]: Shobha Delgado on 03/10/20 11:57 am * Is the patient Alert and Oriented? Yes * How many steps to enter\exit or inside your home? Mult * PCP Brian Khan APRN [facility], [place] * Pharmacy [facility], [place] * Preadmission Environment Home with Family * ADLs Independent * Equipment Cane Rolling Walker Tub Bench * Other Equipment NA * List name and contact numbers for known caregivers / representatives who currently or will assist patient after discharge: Mary Sellers () [phone] * Verbal permission to speak to the caregivers and representatives has been obtained from the patient. Yes * Community resources currently utilized None * Please name any agencies selected above. [facility], [place] [phone] * Additional services required to return to the preadmission environment? No * Can the patient safely return to the preadmission environment? Yes * Has this patient been hospitalized within the prior 30 days at any hospital? No Coverage Notice Reviewer: [email or web address] Gavino Delgado Notice Issued Date-Time: 03/10/2020 13:40 Notice Type: Patient Choice Letter Notice Delivered To: Patient Relationship to Patient: Self Freight Rate Clerk Name: Chrissy Sellers Delivery Method: HAND - Hand Delivered Desirae Days: Prior Verbal Notification: Recipient Understood Notice: Yes Recipient Signature: Yes Med Rec Note Co-signed by Attending: Coverage Notice Comment: Patient choice for [facility]. Original to chart, and copy to patient. Last DP export: 03/10/20 11:03 a Patient Name: CHRISSY SELLERS Page [id number] at 1356 All edits/amendments must be made on the electronic document DICTATION DATE: 03/10/20 1350 ART GLASS SETTER: SUNG 03/10/20 1355 RPT#: [id number] DC DATE:03/10/20 STATUS: DIS IN [facility] [address] [place] [address] END OF REPORT
--- NOTE | 2020-03-10 16:07 | OP ---
PATIENT NAME: CHRISSY MAHMOOD MEDICAL RECORD: [id number] :49 LOCATION:D. D.1209 ADMISSION DATE:03/09/20 SURGEON: ALBERTO BOWEN MD DATE OF OPERATION: 03/09/2020 PREOPERATIVE DIAGNOSIS: Severe arthritis of the right glenohumeral joint. POSTOPERATIVE DIAGNOSIS: Severe arthritis of the right glenohumeral joint. PROCEDURE: Right total shoulder arthroplasty. SURGEON: Alberto Bowen MD WET SANDER: ALEXANDRIA Iglesias INTRAOPERATIVE COMPLICATIONS: None. SUMMARY OF PATHOLOGIC FINDINGS: The patient has severe osteoarthritis with very large osteophytes and [id number] articulation of the right shoulder. IMPLANTS USED: Arthrex Univers II humeral head size 8 humeral stem, Univers VaultLock glenoid size medium. ESTIMATED BLOOD LOSS: 200 mL. OPERATIVE SUMMARY IN DETAIL: After obtaining the appropriate preoperative orthopedic surgery consent as well as anesthetic consultation, evaluation, and clearance, the patient was brought to the operating room and placed on the operating table in the supine position. After adequate general laryngeal mask airway was administered, the patient was placed in beach chair position. All pressure points were well padded. He was held firmly to the operating table using the Vac-Pac suction system. Right upper extremity and shoulder were then prepped and draped in routine sterile fashion. The arm was held in the Trimano arm holding device. At this point, the appropriate time-out was taken and agreed upon by all given the patient's unique identifiers. Deltopectoral incision was taken down to the level of cephalic vein, which was retracted laterally using the brown retractor. Clavipectoral fascia was gently incised. Conjoined tendon was gently retracted medially. The subscapularis was taken down. Biceps tendon was tagged and cut for later tenodesis. The entire humeral head was then dislocated into the incision. Osteophytes were removed. A humeral head cut was made using the humeral head cutting guide. Serial and sequential reaming and broaching were done for a size 8. Size [address] with a cut guide in place. Having completed this, attention was turned to the glenoid. With full exposure of the glenoid, circumferential labrectomy was followed by placement of the central pin. Reaming was then done for a size medium, which was most appropriate given the patient's osteophytes that needed to be removed. Size medium was repaired and the glenoid was securely put into place. Attention was then returned to the proximal humerus. Size [address] The inferior and superior set screws were then followed by placement of the appropriate size humeral head. It was a 48 x 14 with offset that was dialed for maximal coverage. This was then tamped into place on the Montilla taper. The shoulder was then reduced, taken through range of motion, and found to be stable with the appropriate subluxation. The wound was copiously irrigated and fill with a gram of vancomycin and a gram of tobramycin. OPERATIVE REPORT [id number] CHRISSY MAHMOOD Subscapularis was then reapproximated to the lesser tuberosity in a transosseous fashion with biceps tenodesis in the repair. Having completed this, the wound was again copiously irrigated. This was then followed by closure with #1 Vicryl, 2-0 Vicryl, and skin starla by ALEXANDRIA Iglesias. Sterile dressings were applied. The patient was awakened and taken to the recovery room in stable condition. All final needle and sponge counts were correct. NTS:[id number] Voice Confirmation ID: [id number] DOCUMENT ID: [id number] ALBERTO BOWEN MD at 1607 CC: [id number] DICTATION DATE: 03/09/[address] PATROL: 03/09/201945 DIS IN 03/10/20 [facility] [address] [place] [address]
== END 2020-03-10 13:36 | disposition home or self-care (01) | DRG 483 ==
LOC: D.SDCHOLD 03-09 06:10 → D.M3 03-09 06:10 → D.SDCHOLD 03-09 07:30 → D.M3 03-09 10:45
PROVIDERS: ADMIT Orthopaedic Surgery; ATTEND Orthopaedic Surgery
PROC: 0RRJ0JZ Replacement of Right Shoulder Joint with Synthetic Substitute, Open Approach (ICD-10-PCS; principal; 2020-03-09 08:15)
DX: M19.011 Primary osteoarthritis, right shoulder (principal); I10 Essential (primary) hypertension; Z72.0 Tobacco use